=== PATIENT | female | born 1970 | race Caucasian/White ===

== ENCOUNTER 2019-01-11 18:57 | Emergency (ER) | payer OTHER ==
[~2019-01-11] VITALS: Ht 167.6 cm; Wt 50.3 kg
[2019-01-11 19:01] VITALS: Ht 167.6 cm; Wt 50.3 kg
--- NOTE | 2019-01-11 20:20 | ERD ---
ER Documentation Chief Complaint Chief Complaint pain/swelling right 5th toe x 2 days, hit it on something hard yesterday HPI 48-year-old female presents to the ED with complaints of right fifth toe pain and swelling times 2 days. Patient states she accidentally hit her toe against her bed 2 days ago and has since been having worsening pain and swelling. She has been taking ibuprofen at home with mild relief of her pain. She is able to remain nonweightbearing. denies any lacerations or abrasions. Denies numbness, tingling or focal weakness. No other injuries reported. ROS All systems reviewed and are negative except as per history of present illness. Medications Home Meds Active Scripts Ibuprofen* (Motrin*) 600 Mg Tab, 600 MG PO Q6H PRN for PAIN AND OR ELEVATED TEMP, #30 TAB Prov:STEPHANY CAICEDO PA-C 01/11/19 Allergies Allergies: Coded Allergies: No Known Drug Allergies (Verified Allergy, Unknown, 01/11/19) PMhx/Soc Medical and Surgical Hx: pt denies Medical Hx, pt denies Surgical Hx Hx Alcohol Use: No Hx Substance Use: No Hx Tobacco Use: Yes (3-4 daily) Smoking Status: Current every day smoker Physical Exam Vitals Vital Signs Date Temp Pulse Resp B/P (MAP) Pulse Ox O2 O2 Flow FiO2 Time Delivery Rate 01/11/19 98.6 84 18 118/62 100 19:01 (80) Physical Exam Const: No acute distress Head: Atraumatic Eyes: Normal Conjunctiva Skin: No petechiae or rashes Lower Extremity -right Skin: No laceration. + Soft tissue swelling of the right fifth toe. Compartments: Soft Motor: + Limited range of motion of the right fifth toe secondary to pain. Full active range of motion ankle/foot Sensation: Intact to light touch FDWS/MF/LF/P surfaces. Bones: + Moderate tenderness to palpation of the right fifth toe. Nontender malleoli/foot Joints: No effusion or laxity Pulses/Perfusion: 2+ DP, Capillary refill < 2 seconds Neur: Awake and alert Psych: Normal Mood and Affect Results 24 hrs Current Medications Medications Dose Sig/Joni Start Time Status Last (Trade) Ordered Route PRN Stop Time Admin Dose Reason Admin Ibuprofen 600 mg ONCE ONCE 01/11/19 DC 01/11/19 (Motrin) PO 20:30 01/11/19 20:13 20:31 Procedures/MDM LABS & DIAGNOSTIC IMAGING: PROCEDURE: XR right foot. CLINICAL INDICATION: Right fifth toe pain TECHNIQUE: AP, lateral and oblique views of the right foot were obtained. COMPARISON: None. FINDINGS: Mineralization is within normal limits. No fracture or osseous lesion is identified. There is no evidence for dislocation. Joint spaces are preserved. The soft tissues are unremarkable. There is no evidence for radiopaque foreign body. RPTAT:HJJR IMPRESSION: Unremarkable right foot. PROCEDURES: Orthotic shoe assessment: Neurovascularly intact post splint placement with good fit. ED COURSE: The patient was given ibuprofen The medication was well tolerated and the patient had market improvement in symptoms. The patient remained stable throughout ED course. MEDICAL DECISION MAKING: This is a 48-year-old female presents to the ED with complaints of right toe pain status post hitting it against her bed 2 days ago. Patient is neurovascularly intact. Physical exam shows soft tissue swelling but otherwise unremarkable. X-ray as above is negative for any acute fracture dislocation. She is given ibuprofen for pain here and placed in an orthosis shoe for comfort. I have low suspicion for neurovascular injury, open joint, open fracture, tendon laceration, foreign body. She is told to follow-up with her primary care doctor in 2 days, otherwise return here for any new or worsening symptoms. PRESCRIPTIONS: Ibuprofen SPECIALIST FOLLOW UP RECOMMENDED: None Patient has been advised to follow up with primary care in 1-2 days. Departure Diagnosis: Primary Impression: Toe contusion Encounter type: initial encounter Toe: lesser toe Damage to nail status: without damage Laterality: right Qualified Codes: S90.121A - Contusion of right lesser toe(s) without damage to nail, initial encounter Condition: Stable Patient Instructions: Fracture, Toe [Closed] Referrals: COMMUNITY CLINICS YOU HAVE RECEIVED A MEDICAL SCREENING EXAM AND THE RESULTS INDICATE THAT YOU DO NOT HAVE A CONDITION THAT REQUIRES URGENT TREATMENT IN THE EMERGENCY DEPARTMENT. FURTHER EVALUATION AND TREATMENT OF YOUR CONDITION CAN WAIT UNTIL YOU ARE SEEN IN YOUR DOCTORS OFFICE WITHIN THE NEXT 1-2 DAYS. IT IS YOUR RESPONSIBILITY TO MAKE AN APPOINTMENT FOR FOLOW-UP CARE. IF YOU HAVE A PRIMARY DOCTOR --you should call your primary doctor and schedule an appointment IF YOU DO NOT HAVE A PRIMARY DOCTOR YOU CAN CALL OUR PHYSICIAN REFERRAL HOTLINE AT IF YOU CAN NOT AFFORD TO SEE A PHYSICIAN YOU CAN CHOSE FROM THE FOLLOWING COMMUNITY CLINICS [facility] [address] [facility] [address] [facility] [address] [facility] [address] [facility] [address] [facility]. [facility] [address] [facility]. [facility] YOU HAVE RECEIVED A MEDICAL SCREENING EXAM AND THE RESULTS INDICATE THAT YOU DO NOT HAVE A CONDITION THAT REQUIRES URGENT TREATMENT IN THE EMERGENCY DEPARTMENT. FURTHER EVALUATION AND TREATMENT OF YOUR CONDITION CAN WAIT UNTIL YOU ARE SEEN IN YOUR DOCTORS OFFICE WITHIN THE NEXT 1-2 DAYS. IT IS YOUR RESPONSIBILITY TO MAKE AN APPOINTMENT FOR FOLOW-UP CARE. IF YOU HAVE A PRIMARY DOCTOR --you should call your primary doctor and schedule and appointment IF YOU DO NOT HAVE A PRIMARY DOCTOR YOU CAN CALL OUR PHYSICIAN REFERRAL HOTLINE AT . IF YOU CAN NOT AFFORD TO SEE A PHYSICIAN YOU CAN CHOSE FROM THE FOLLOWING [facility] INSTITUTIONS: [facility] [address] [place] [address] [facility] [address] [place] [address] [facility] [address] [place] [address] [facility] Ur[facility] Care 7 a.m.- 11 p.m. Every Day of the Week NO APPOINTMENT OR AUTHORIZATION NEEDED Additional Instructions: Remain weightbearing until you are seen by an orthopedist or by her regular doctor. I provided you a referral to an orthopedic center, you can also be seen at [facility] or [facility]. Take ibuprofen as needed for pain. Return here for any new or worsening symptoms. STEPHANY CAICEDO PA-C Jan 11, 2019 20:20
[2019-01-11] MEDS ORDERED: IBUPROFEN 600 MG TAB PO ONE (20:30)
[2019-01-11] MEDS ORDERED: IBUP-1542 PO (21:25)
[2019-01-11 21:30] VITALS: BP 124/59; PULSE 71; RESP 18
== END 2019-01-11 21:30 | disposition home or self-care (01) ==
LOC: FTE 18:57
DX: S90.121A Contusion of right lesser toe(s) without damage to nail, initial encounter (principal); F17.210 Nicotine dependence, cigarettes, uncomplicated; W22.8XXA Striking against or struck by other objects, initial encounter; Y92.9 Unspecified place or not applicable
CPT/HCPCS: 73630; Z7502; Z7610